=== PATIENT | female | born 1985 | race Two or more races ===

== ENCOUNTER 2020-09-26 10:37 | Emergency (ER) | payer OTHER ==
[~2020-09-26] VITALS: Ht 157.5 cm; Wt 68.0 kg
[2020-09-26] MEDS ORDERED: PRENA1 TRUE CO1 EACH (11:10)
[2020-09-26] MEDS ORDERED: FOLIC ACID0.8 M1 (11:10)
== END 2020-09-26 16:18 | disposition home or self-care (01) ==
LOC: ER 10:37
DX: O26.892 Other specified pregnancy related conditions, second trimester (principal); S83.8X2A Sprain of other specified parts of left knee, initial encounter; X50.0XXA Overexertion from strenuous movement or load, initial encounter; Y93.89 Activity, other specified; Y92.013 Bedroom of single-family (private) house as the place of occurrence of the external cause; Y99.8 Other external cause status; Z3A.21 21 weeks gestation of pregnancy

== ENCOUNTER 2021-01-22 02:46 | Outpatient (CLI) | payer OTHER ==
[~2021-01-22 02:46] MED LIST: FOLIC ACID0.8 M1; PRENA1 TRUE CO1 EACH
== END 2021-01-22 09:13 | disposition home or self-care (01) ==
LOC: OBS/DEL 02:46
PROVIDERS: ATTEND Obstetrics & Gynecology
DX: O23.43 Unspecified infection of urinary tract in pregnancy, third trimester (principal); Z3A.38 38 weeks gestation of pregnancy

== ENCOUNTER 2021-01-29 01:09 | Inpatient (IN) | payer OTHER ==
[~2021-01-29] VITALS: Ht 157.5 cm; Wt 75.3 kg
== END 2021-01-31 13:58 | disposition home or self-care (01) | DRG 807 ==
LOC: LDR 01:09 → OB/GYN 01:09
PROVIDERS: ADMIT Obstetrics & Gynecology; ATTEND Obstetrics & Gynecology
PROC: 10E0XZZ Delivery of Products of Conception, External Approach (ICD-10-PCS; principal; 2021-01-29)
PROC: 0HQ9XZZ Repair Perineum Skin, External Approach (ICD-10-PCS; 2021-01-29)
PROC: 4A1HXFZ Monitoring of Products of Conception, Cardiac Rhythm, External Approach (ICD-10-PCS; 2021-01-29)
DX: O70.0 First degree perineal laceration during delivery (principal); Z37.0 Single live birth; Z3A.39 39 weeks gestation of pregnancy; Z20.822 Contact with and (suspected) exposure to COVID-19

== ENCOUNTER 2022-10-29 07:18 | Inpatient (IN) | payer OTHER ==
[~2022-10-29] VITALS: Ht 157.5 cm; Wt 61.2 kg
== END 2022-11-10 13:16 | disposition home or self-care (01) | DRG 743 ==
LOC: OB/GYN 10-31 07:00 → O/R 11-07 09:52 → OB/GYN 11-07 15:03
PROVIDERS: ADMIT Obstetrics & Gynecology; ATTEND Obstetrics & Gynecology
PROC: 0UT50ZZ Resection of Right Fallopian Tube, Open Approach (ICD-10-PCS; 2022-11-07)
PROC: 0UT90ZZ Resection of Uterus, Open Approach (ICD-10-PCS; principal; 2022-11-07 09:30)
DX: D25.1 Intramural leiomyoma of uterus (principal); D25.2 Subserosal leiomyoma of uterus; N72 Inflammatory disease of cervix uteri; Z20.822 Contact with and (suspected) exposure to COVID-19; N84.1 Polyp of cervix uteri